=== PATIENT | female | born 1975 | race Caucasian/White ===

== ENCOUNTER 2021-09-06 13:35 | Emergency (ER) | payer SELFPAY ==
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
[2021-09-06 13:46] VITALS: BP 130/89; PULSE 88; RESP 16; TEMP 36.2; O2SAT 100
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
== END 2021-09-06 15:22 | disposition home or self-care (01) ==
PROVIDERS: Emergency Provider Registered Nurse
DX: M54.2 Cervicalgia (principal); R51.9 Headache, unspecified; Z86.16 Personal history of COVID-19
CPT/HCPCS: 72050; 99213; G0463

== ENCOUNTER 2022-04-24 16:10 | Emergency (ER) | payer BC, SELFPAY ==
[2022-04-24 16:19] VITALS: BP 155/96; PULSE 95; RESP 16; TEMP 36.6; O2SAT 100
--- NOTE | 2022-04-24 16:26 | ED.URI ---
HPI - URI/Sore Throat General Chief Complaint: Upper Respiratory Infection Stated Complaint: COUGH Time Seen by Provider: 04/24/22 16:26 Source: patient Mode of arrival: ambulatory Limitations: no limitations History of Present Illness HPI Narrative: Larisa is a 47-year-old female patient presenting to clinic today with complaints of a cough times 3 days. She reports no fever, no congestion, no chills, no shortness of breath, does have some pain with coughing in her chest. She has not taken anything for cough MD elicited complaint: cough and nasal congestion Related Data Home Medications Medication Instructions Recorded Confirmed bupropion HCl 150 mg 24 hr tablet, 150 mg PO DAILY 04/24/22 04/24/22 extended release hydroxyzine HCl 25 mg tablet 25 mg PO DAILY 04/24/22 04/24/22 Allergies Allergy/AdvReac Type Severity Reaction Status Date / Time No Known Allergies Allergy Verified 04/24/22 16:24 Review of Systems Review of Systems: Pertinent positives per HPI. Patient denies any fever, chills, rash, headache, visual changes, dizziness, shortness of breath, chest pain, palpitations, nausea, vomiting, diarrhea, constipation, abdominal pain, or any urinary issues. [facility] Past Medical History Medical History COVID-10 July 2021 Surgical History Surgical History H/O bilateral breast reduction surgery H/O tubal ligation History of partial hysterectomy Hx of tonsillectomy Family History Family History Father Family history of suicide, Onset Age: 201 Mother Hypertension Family history of atrial fibrillation Family history of heart disease in male family member before age 55 Other Family history of type 1 diabetes mellitus Social History Social History Smoking status: Never smoker Second hand tobacco smoke exposure: No Alcohol intake: current Comments At the time of my signature, I reviewed and agree with the nursing past medical, surgical, social, and family history. There is no relevant family history pertinent to the patient complaint. Exam Narrative: General: Well-developed, well nourished, in no apparent distress Head: Normocephalic, atraumatic Eyes: Pupils equally round and reactive to light bilaterally, EOM intact, sclera and conjunctive clear, no discharge, lids normal Ears: TMs intact and clear, ear canals clear, no drainage, grossly hearing normal. Nose: Nares patent, clear nasal discharge, no inflammation, no sinus tenderness. Mouth: Oral pharynx without lesions or masses, good dentition, MMM. Postnasal drip Neck: Supple, trachea midline, no enlargement of anterior or posterior cervical nodes, no thyroid masses or goiter palpable. Cardio: Regular rate and rhythm, s1 and s2 normal, no murmur appreciated. Resp: Clear to auscultation bilaterally, no rhonchi, rales, wheezing or rubs Course Course Emergency Course: Portions of this record may have been created with voice recognition software. Level of Care: Express Care Visit Vital Signs Vital signs: Vital Signs Temperature 36.6 C 04/24/22 16:19 Pulse Rate 95 04/24/22 16:19 Respiratory Rate 16 04/24/22 16:19 Blood Pressure 155/96 H 04/24/22 16:19 Pulse Oximetry 100 04/24/22 16:19 Temperature 36.6 C 04/24/22 16:19 Pulse Rate 95 04/24/22 16:19 Respiratory Rate 16 04/24/22 16:19 Blood Pressure 155/96 H 04/24/22 16:19 Pulse Oximetry 100 04/24/22 16:19 Vital signs reviewed MDM - URI/Sore Throat MDM Narrative Medical decision making narrative: At the time of visit patient is resting comfortably on the exam table. I suspect the patient has acute cough/URI. Prescription for prednisone was sent to the pharmacy. Supportive measures were discu
== END 2022-04-24 16:38 | disposition home or self-care (01) ==
PROVIDERS: Emergency Provider Nurse Practitioner Family; PCP Nurse Practitioner Family
DX: J06.9 Acute upper respiratory infection, unspecified (principal); R05.1 Acute cough; Z86.16 Personal history of COVID-19; Z90.711 Acquired absence of uterus with remaining cervical stump
CPT/HCPCS: 99213; G0463